=== PATIENT | male | born 1955 | race Caucasian/White ===

== ENCOUNTER 2020-07-29 12:44 | Inpatient (IN) ==
[2020-07-29 13:21] LABS: Basophils % 0.5 %; Eosinophils # 0.2 K/mcL (0.0-0.6); Eosinophils % 2.4 %; Hematocrit 44.2 % (37.5-50.1); Hemoglobin 14.9 g/dL (12.9-16.9); Immature Granulocytes % 0.3 % (0-4); Lymphocytes # 1.1 K/mcL (0.6-4.6); Lymphocytes % 14.8 %; Mean Corpuscular HGB Conc 33.7 g/dL (31.6-35.5); Mean Corpuscular Hemoglobin 28.7 pg (28.0-33.3); Mean Platelet Volume 9.7 fL (9.4-12.4); Monocytes # 0.3 K/mcL (0.0-1.3); Monocytes % 3.6 %; Neutrophils # 5.9 K/mcL (1.6-8.9); Platelet Count 210 K/mcL (140-400); Segmented Neutrophils % 78.4 %; White Blood Count 7.5 K/mcL (4.3-11.1)
[2020-07-29 14:04] LABS: Acetaminophen < 10 mcg/mL (10-20); BUN/Creatinine Ratio 5 (6-26); Blood Urea Nitrogen 6 mg/dL (8-23); Calcium 9.2 mg/dL (8.6-10.3); Carbon Dioxide 25 mEq/L (23-29); Chloride 102 mEq/L (98-107); Chol/HDL Ratio 3.1 (0-4.9); Cholesterol 117 mg/dL (< 200); Ethanol 68 mg/dL (Less than 10); Glucose 213 mg/dL (70-105); HDL Cholesterol 38 mg/dL (40-59); LDL Cholesterol,Calculated 63 mg/dL (< 100); Osmolality,Calculated 288 (280-300); Potassium 3.5 mEq/L (3.5-5.1); Salicylate < 2.5 mg/dL (15.0-30.0); Sodium 137 mEq/L (136-145); Triglycerides 80 mg/dL (< 150); eGFR For African Americans > 60 (> 60); eGFR For Non-African Americans > 60 (> 60)
[2020-07-29 14:16] LABS: Bilirubin,Urine Negative (Negative); Blood,Urine Negative (Negative); Clarity,Urine Clear (Clear); Color,Urine Yellow (Yellow); Glucose,Urine (UA) Normal (Normal); Ketones,Urine Negative (Negative); Leukocyte Esterase,Urine Negative (Negative); Nitrite,Urine Negative (Negative); Protein,Urine Negative (Neg-Trace); Specific Gravity,Urine 1.006 (1.010-1.025); Urobilinogen,Urine Normal (Normal)
[2020-07-29 15:26] LABS: Amphetamine Screen,Urine Negative ng/mL (Cutoff=1000); Barbiturate Screen,Urine Negative ng/mL (Cutoff=200); Benzodiazepines Screen,Urine Negative ng/mL (Cutoff=200); Cannabinoid Screen,Urine Positive ng/mL (Cutoff = 50); Cocaine Screen,Urine Negative ng/mL (Cutoff= 300); Opiate Screen,Urine Negative ng/mL (Cutoff=300); Phencyclidine Screen,Urine Negative ng/mL (Cutoff=25)
[2020-07-29] MEDS ORDERED: *HR* LORazepam 1 MG TABLET PO PRN (16:38)
[2020-07-29] MEDS ORDERED: Haloperidol Lactate 5 MG/ML VIAL IM PRN (16:38)
[2020-07-29] MEDS ORDERED: MOM Conc 10 ML UD.LIQ PO PRN (16:38)
[2020-07-29] MEDS ORDERED: *HR* LORazepam 2 MG/ML VIAL IM PRN (16:38)
[2020-07-29] MEDS ORDERED: haloperidoL 5 MG TABLET PO PRN (16:38)
[2020-07-29] MEDS ORDERED: Nitroglycerin 0.4 MG TAB.SUBL SL PRN (16:44)
[2020-07-29] MEDS: carvediloL 6.25 MG TABLET PO SCH (17:35)
[2020-07-29 17:56] LABS: Estimated Average Glucose 117 mg/dl
[2020-07-29] MEDS: traZODone 50 MG TABLET PO PRN (21:10)
[2020-07-29] MEDS: Acetaminophen 325 MG TABLET PO PRN (21:10)
[2020-07-29] MEDS: hydrOXYzine pamoate 25 MG CAPSULE PO PRN (21:11)
[2020-07-29] MEDS: Mag Hydrox/Al Hydrox/Simeth 30 ML UDC PO PRN (21:11)
[2020-07-30] MEDS: Aspirin Enteric Coated 81 MG Tablet PO SCH (08:38)
[2020-07-30] MEDS: hydrOXYzine pamoate 25 MG CAPSULE PO PRN ×2 (08:39→14:24)
[2020-07-30] MEDS: Vitamin B Complex/Vit C/Vit E 1 EACH TABLET PO SCH (08:39)
[2020-07-30] MEDS: Isosorbide MONOnitrate (24 HR) 60 MG TAB.ER.24H PO SCH (08:41)
[2020-07-30] MEDS: carvediloL 6.25 MG TABLET PO SCH ×2 (08:41→17:01)
[2020-07-30] MEDS ORDERED: lisinopriL 20 MG TABLET PO SCH (09:00)
[2020-07-30] MEDS: Acetaminophen 325 MG TABLET PO PRN ×2 (12:50→20:45)
[2020-07-30] MEDS ORDERED: lisinopriL 20 MG TABLET PO ONE (13:18)
[2020-07-30 17:38] LABS: Triiodothyronine (T3) Free 3.56 pg/mL (2.50-3.90)
[2020-07-30 17:43] LABS: Triiodothyronine (T3) Total 1.43 ng/mL (0.87-1.78)
[2020-07-30] MEDS: traZODone 50 MG TABLET PO PRN (20:45)
[2020-07-31] MEDS ORDERED: cloNIDine HCL 0.1 MG TABLET PO ONE (02:48)
[2020-07-31] MEDS ORDERED: hydrALAZINE 10 MG TABLET PO PRN (08:12)
[2020-07-31] MEDS: Aspirin Enteric Coated 81 MG Tablet PO SCH (08:28)
[2020-07-31] MEDS: carvediloL 6.25 MG TABLET PO SCH ×2 (08:29→16:56)
[2020-07-31] MEDS: lisinopriL 20 MG TABLET PO SCH (08:29)
[2020-07-31] MEDS: Isosorbide MONOnitrate (24 HR) 60 MG TAB.ER.24H PO SCH (08:30)
[2020-07-31] MEDS: Vitamin B Complex/Vit C/Vit E 1 EACH TABLET PO SCH (08:30)
[2020-07-31] MEDS: hydrOXYzine pamoate 25 MG CAPSULE PO PRN ×2 (08:58→15:21)
[2020-07-31] MEDS ORDERED: QUEtiapine Fumarate 25 MG TABLET PO PRN (09:11)
[2020-07-31] MEDS: Mag Hydrox/Al Hydrox/Simeth 30 ML UDC PO PRN (17:28)
[2020-07-31] MEDS: traZODone 50 MG TABLET PO SCH (20:11)
[2020-08-01] MEDS: traZODone 50 MG TABLET PO PRN (00:20)
[2020-08-01] MEDS: hydrOXYzine pamoate 25 MG CAPSULE PO PRN ×2 (00:21→20:12)
[2020-08-01] MEDS: Vitamin B Complex/Vit C/Vit E 1 EACH TABLET PO SCH (08:20)
[2020-08-01] MEDS: Aspirin Enteric Coated 81 MG Tablet PO SCH (08:20)
[2020-08-01] MEDS: Isosorbide MONOnitrate (24 HR) 60 MG TAB.ER.24H PO SCH (08:20)
[2020-08-01] MEDS: lisinopriL 20 MG TABLET PO SCH (08:20)
[2020-08-01] MEDS: carvediloL 6.25 MG TABLET PO SCH ×2 (08:21→18:11)
[2020-08-01 11:02] LABS: Basophils % 0.5 %; Eosinophils # 0.2 K/mcL (0.0-0.6); Eosinophils % 2.3 %; Hematocrit 42.8 % (37.5-50.1); Hemoglobin 14.4 g/dL (12.9-16.9); Immature Granulocytes % 0.2 % (0-4); Lymphocytes # 1.2 K/mcL (0.6-4.6); Lymphocytes % 15.1 %; Mean Corpuscular HGB Conc 33.6 g/dL (31.6-35.5); Mean Corpuscular Hemoglobin 29.7 pg (28.0-33.3); Mean Corpuscular Volume 88.2 fL (83.0-100.0); Mean Platelet Volume 9.5 fL (9.4-12.4); Monocytes # 0.5 K/mcL (0.0-1.3); Monocytes % 5.6 %; Neutrophils # 6.2 K/mcL (1.6-8.9); Platelet Count 194 K/mcL (140-400); Red Blood Count 4.85 M/mcL (4.19-5.50); Red Cell Distribution Width 13.2 % (11.5-14.5); Segmented Neutrophils % 76.3 %; White Blood Count 8.2 K/mcL (4.3-11.1)
[2020-08-01 11:10] LABS: BUN/Creatinine Ratio 8 (6-26); Blood Urea Nitrogen 10 mg/dL (8-23); Calcium 9.4 mg/dL (8.6-10.3); Carbon Dioxide 22 mEq/L (23-29); Chloride 105 mEq/L (98-107); Glucose 128 mg/dL (70-105); Osmolality,Calculated 281 (280-300); Potassium 4.2 mEq/L (3.5-5.1); Sodium 135 mEq/L (136-145); eGFR For African Americans > 60 (> 60); eGFR For Non-African Americans 57 (> 60)
[2020-08-01] MEDS: Acetaminophen 325 MG TABLET PO PRN (14:20)
[2020-08-01] MEDS: traZODone 50 MG TABLET PO SCH (20:09)
[2020-08-01] MEDS ORDERED: lisinopriL 10 MG TABLET PO SCH (21:00)
[2020-08-02] MEDS: traZODone 50 MG TABLET PO PRN (02:31)
[2020-08-02] MEDS: Isosorbide MONOnitrate (24 HR) 60 MG TAB.ER.24H PO SCH (08:25)
[2020-08-02] MEDS: Aspirin Enteric Coated 81 MG Tablet PO SCH (08:26)
[2020-08-02] MEDS: Vitamin B Complex/Vit C/Vit E 1 EACH TABLET PO SCH (08:26)
[2020-08-02] MEDS: lisinopriL 20 MG TABLET PO SCH (08:26)
[2020-08-02] MEDS: carvediloL 6.25 MG TABLET PO SCH (08:26)
[2020-08-02 09:18] LABS: Basophils # 0.1 K/mcL (0.0-0.2); Basophils % 0.8 %; Eosinophils # 0.2 K/mcL (0.0-0.6); Eosinophils % 3.7 %; Hematocrit 43.8 % (37.5-50.1); Hemoglobin 14.8 g/dL (12.9-16.9); Immature Granulocytes % 0.3 % (0-4); Lymphocytes # 1.2 K/mcL (0.6-4.6); Lymphocytes % 18.3 %; Mean Corpuscular HGB Conc 33.8 g/dL (31.6-35.5); Mean Corpuscular Hemoglobin 29.7 pg (28.0-33.3); Mean Platelet Volume 9.5 fL (9.4-12.4); Monocytes # 0.5 K/mcL (0.0-1.3); Monocytes % 6.9 %; Neutrophils # 4.6 K/mcL (1.6-8.9); Platelet Count 186 K/mcL (140-400); Red Blood Count 4.98 M/mcL (4.19-5.50); Red Cell Distribution Width 13.3 % (11.5-14.5); White Blood Count 6.5 K/mcL (4.3-11.1)
[2020-08-02 09:31] VITALS: BP 156/101
[2020-08-02 09:34] LABS: BUN/Creatinine Ratio 8 (6-26); Blood Urea Nitrogen 10 mg/dL (8-23); Calcium 9.5 mg/dL (8.6-10.3); Carbon Dioxide 23 mEq/L (23-29); Chloride 105 mEq/L (98-107); Glucose 118 mg/dL (70-105); Osmolality,Calculated 286 (280-300); Potassium 4.5 mEq/L (3.5-5.1); Sodium 138 mEq/L (136-145); eGFR For African Americans > 60 (> 60); eGFR For Non-African Americans 55 (> 60)
[2020-08-04 08:57] LABS: ANA HEp-2 IgG IFA <1:80 (<1:80)
== END 2020-08-02 11:50 | disposition home or self-care (01) | DRG 885 ==
LOC: EMEROOARM 12:44 → 1ANU 16:19
PROVIDERS: ADMIT Psychiatry & Neurology Psychiatry; ATTEND Psychiatry & Neurology Psychiatry